=== PATIENT | female | born 1945 | race Caucasian/White ===

== ENCOUNTER → 2018-11-03 | Outpatient (CLI) | payer MEDICARE ==
[2015-03-13 19:08] VITALS: BP 167/85
[~2018-11-03] MED LIST: AMLO10TA4 PO; LOSA1TAB2 PO
--- NOTE | 2018-11-03 16:44 | KCIC ---
Bone densitometry 11/03/2018 10:30 AM Indication: Postmenopausal patient. History of adult fracture. Comparison Study: None available.. Discussion: Bone Densitometry was performed with dual photon absorption of the lumbar spine and proximal left femur. Lumbar Spine: Bone average density is 0.818g/cm2 for L1-L4. T-Score is -2.1. Proximal left femur: Bone average density is 0.575g/cm2. T-Score is -3.0. IMPRESSION: Osteoporosis. Fracture risk is high. Post therapeutic follow-up exam recommended. Note: Definitions established by the World [employer] Organization: Normal: T-score is -1.0 or above. Osteopenia: T-score is between -1.0 and -2.5. Osteoporosis: T-score is -2.5 or below. Electronically signed by: Pasha Briceño MD (11/03/2018 4:41 PM) [id number]
== END | disposition home or self-care (01) ==
LOC: KCIC DEXA 10:11
PROVIDERS: ATTEND Family Medicine
DX: M81.0 Age-related osteoporosis without current pathological fracture (principal); Z78.0 Asymptomatic menopausal state
CPT/HCPCS: 77080